=== PATIENT | female | born 1955 | race Caucasian/White ===

== ENCOUNTER 2019-11-22 08:40 | Emergency (ER) | payer MEDICAID, MEDICARE ==
[~2019-11-22] VITALS: Ht 162.6 cm; Wt 54.5 kg
[~2019-11-22 08:40] MED LIST: FLUT16SP2 NS; GABA600T13 PO; RIVA20TA PO
[2019-11-22 09:08] LABS: BASOPHILS % (AUTO) 0.3 % (0-1); EOSINOPHILS % (AUTO) 0 % (0-6); HEMATOCRIT 45.3 % (35.0-45.0); HEMOGLOBIN 15.6 g/dl (12.0-16.0); LYMPHOCYTES # (AUTO) 0.6 X10'3 (1.1-4.8); LYMPHOCYTES % (AUTO) 8.4 % (21-51); MEAN CORPUSCULAR HEMOGLOBIN 30.1 PG (27.0-31.0); MEAN CORPUSCULAR HGB CONC 34.4 g/dL (33.0-36.5); MEAN CORPUSCULAR VOLUME 87.5 FL (78-98); MEAN PLATELET VOLUME 8.5 FL (7.4-10.4); MONOCYTES % (AUTO) 13.1 % (2-12); NEUTROPHILS # (AUTO) 5.7 X10'3 (1.8-7.7); NEUTROPHILS % (AUTO) 78.2 % (42-75); PLATELET COUNT 206 X10'3 (140-440); RED BLOOD COUNT 5.18 X10'6 (4.20-5.60); RED CELL DISTRIBUTION WIDTH 13.8 % (11.5-14.5); WHITE BLOOD COUNT 7.3 X10'3 (4.5-11.0)
[2019-11-22 09:25] LABS: ALANINE AMINOTRANSFERASE 19 U/L (12-78); ALBUMIN 3.1 G/DL (3.4-5.0); ALBUMIN/GLOBULIN RATIO 0.8 (1.1-1.5); ALKALINE PHOSPHATASE 67 IU/L (46-116); ANION GAP 11 (8-16); ASPARTATE AMINO TRANSFERASE 20 U/L (10-37); BILIRUBIN,TOTAL 0.4 MG/DL (0.1-1.0); BLOOD UREA NITROGEN 18 MG/DL (7-18); BUN/CREATININE RATIO 15.4 (6.6-38.0); CALCIUM 7.3 MG/DL (8.5-10.1); CHLORIDE 102 MMOL/L (99-107); CREATININE 1.17 MG/DL (0.40-0.90); GLUCOSE 118 MG/DL (70-104); LIPASE 100 U/L (73-393); SODIUM 137 MMOL/L (135-145); TOTAL CARBON DIOXIDE 23.8 MMOL/L (24-32); eGFR 46 ML/MIN
[2019-11-22] MEDS ORDERED: pantoprazole 40 MG vial IV ONE (09:25)
[2019-11-22] MEDS ORDERED: ondansetron/PF 4mg/2ml inj IV ONE ×2 (09:25→10:45)
[2019-11-22] MEDS ORDERED: normal saline 1000ML IV soln IVB ONE (09:25)
[2019-11-22] MEDS ORDERED: loperamide 2mg capsule PO ONE (09:25)
[2019-11-22 09:50] LABS: URINE HCG NEGATIVE (NEG)
[2019-11-22] MEDS: morphine 2 MG/ML inj. syringe IV PRN ×2 (10:24→12:04)
[2019-11-22] MEDS: potassium Cl 10 mEq/100mL bag IV SCH ×2 (10:24→11:56)
[2019-11-22 11:52] LABS: CLARITY,URINE SLIGHTLY CLOUDY (Clear); COLOR,URINE YELLOW (Yellow); GLUCOSE, URINE NEGATIVE (Neg); KETONES,URINE NEGATIVE (Neg); LEUKOCYTE ESTERASE ,URINE NEGATIVE (Neg); NITRITES, URINE NEGATIVE (Neg); OCCULT BLOOD,URINE MODERATE (Neg); PROTEIN,URINE NEGATIVE (Neg); UA COLLECTION TYPE CLN CATCH MIDSTREAM; UROBILINOGEN,URINE 0.2 E.U/dL (0.2-1.0)
[2019-11-22] MEDS ORDERED: potassium Cl 10 mEq/100mL bag IV SCH (11:55)
[2019-11-22 11:58] LABS: HYALINE CASTS 0-3 /LPF (NEGATIVE); MUCUS STRANDS FEW /LPF (Neg); SQUAMOUS EPITHELIAL CELL,UR FEW /LPF (FEW)
[2019-11-22 11:59] LABS: BACTERIA,URINE 1+ /HPF (Neg); WBC,URINE 0-4 /HPF (0-4)
[2019-11-22] MEDS ORDERED: ONDA8TAB13 PO (12:57)
--- NOTE | 2019-11-22 13:12 | NUR ---
relieving RN for break, pt is resting quietly on bed, cannot mariel potassium IV "regan", Dr Martini aware and gave verbal order to run NS with potassium IV, pt is tolerating well. Pt also had apple juice, mariel well, no n/v, pt has ride home with boyfriend
[2019-11-22 14:31] VITALS: BP 97/58
== END 2019-11-22 14:36 | disposition home or self-care (01) ==
LOC: ER 08:41
DX: K52.9 Noninfective gastroenteritis and colitis, unspecified (principal); R11.10 Vomiting, unspecified; J45.909 Unspecified asthma, uncomplicated; G89.29 Other chronic pain; Z88.2 Allergy status to sulfonamides; Z88.8 Allergy status to other drugs, medicaments and biological substances; Z88.6 Allergy status to analgesic agent; Z79.899 Other long term (current) drug therapy; Z86.718 Personal history of other venous thrombosis and embolism; Z98.890 Other specified postprocedural states
CPT/HCPCS: 36415; 80053; 81001; 81025; 83690; 85025; 96361; 96374; 96375; 96376; 99283; C9113; J2270; J2405; J3480; J7030

== ENCOUNTER 2019-11-24 17:30 | Emergency (ER) | payer MEDICARE ==
[~2019-11-24] VITALS: Ht 162.6 cm; Wt 50.9 kg
[~2019-11-24 17:30] MED LIST changes: +ONDA8TAB13 PO
[2019-11-24] MEDS ORDERED: normal saline 1000ML IV soln IVB ONE (18:05)
[2019-11-24] MEDS ORDERED: ondansetron/PF 4mg/2ml inj IV ONE (18:05)
[2019-11-24] MEDS ORDERED: loperamide 2mg capsule PO ONE (18:05)
[2019-11-24 19:07] LABS: BASOPHILS % (AUTO) 0.3 % (0-1); EOSINOPHILS % (AUTO) 0.3 % (0-6); HEMATOCRIT 45.1 % (35.0-45.0); HEMOGLOBIN 15.8 g/dl (12.0-16.0); LYMPHOCYTES # (AUTO) 0.9 X10'3 (1.1-4.8); LYMPHOCYTES % (AUTO) 11.6 % (21-51); MEAN CORPUSCULAR HEMOGLOBIN 29.9 PG (27.0-31.0); MEAN CORPUSCULAR VOLUME 85.4 FL (78-98); MEAN PLATELET VOLUME 8.5 FL (7.4-10.4); MONOCYTES # (AUTO) 1.7 X10'3 (0-0.9); MONOCYTES % (AUTO) 22.5 % (2-12); NEUTROPHILS % (AUTO) 65.3 % (42-75); PLATELET COUNT 216 X10'3 (140-440); RED BLOOD COUNT 5.28 X10'6 (4.20-5.60); RED CELL DISTRIBUTION WIDTH 13.7 % (11.5-14.5); WHITE BLOOD COUNT 7.7 X10'3 (4.5-11.0)
[2019-11-24 19:23] LABS: ALANINE AMINOTRANSFERASE 20 U/L (12-78); ALBUMIN 2.9 G/DL (3.4-5.0); ALBUMIN/GLOBULIN RATIO 0.8 (1.1-1.5); ALKALINE PHOSPHATASE 73 IU/L (46-116); ANION GAP 12 (8-16); ASPARTATE AMINO TRANSFERASE 19 U/L (10-37); BILIRUBIN,TOTAL 0.4 MG/DL (0.1-1.0); BLOOD UREA NITROGEN 11 MG/DL (7-18); BUN/CREATININE RATIO 10.1 (6.6-38.0); CALCIUM 7.5 MG/DL (8.5-10.1); CHLORIDE 101 MMOL/L (99-107); CREATININE 1.09 MG/DL (0.40-0.90); GLUCOSE 113 MG/DL (70-104); LIPASE 225 U/L (73-393); SODIUM 137 MMOL/L (135-145); TOTAL CARBON DIOXIDE 24.4 MMOL/L (24-32); TOTAL PROTEIN 6.7 G/DL (6.4-8.2); eGFR 50 ML/MIN
[2019-11-24 19:26] LABS: POTASSIUM 2.9 MMOL/L (3.5-5.1)
[2019-11-24] MEDS ORDERED: GABA600T13 PO (19:28)
[2019-11-24 19:43] LABS: CLARITY,URINE SLIGHTLY CLOUDY (Clear); COLOR,URINE AMBER (Yellow); GLUCOSE, URINE NEGATIVE (Neg); KETONES,URINE NEGATIVE (Neg); LEUKOCYTE ESTERASE ,URINE NEGATIVE (Neg); NITRITES, URINE NEGATIVE (Neg); OCCULT BLOOD,URINE MODERATE (Neg); PROTEIN,URINE 30 mg/dl (Neg); UROBILINOGEN,URINE 0.2 E.U/dL (0.2-1.0)
[2019-11-24] MEDS ORDERED: potassium Cl 20 mEq SR tablet PO STA (19:43)
[2019-11-24 19:44] LABS: UA COLLECTION TYPE CLN CATCH MIDSTREAM
[2019-11-24] MEDS ORDERED: potassium Cl 10 mEq/100mL bag IV ONE (19:45)
[2019-11-24 19:52] LABS: BACTERIA,URINE FEW /HPF (Neg); MUCUS STRANDS MANY /LPF (Neg); SQUAMOUS EPITHELIAL CELL,UR MANY /LPF (FEW); WBC,URINE 0-4 /HPF (0-4)
[2019-11-24] MEDS ORDERED: metoclopramide 5 mg/ml inj IV ONE (20:00)
[2019-11-24] MEDS ORDERED: ketorolac trometh. 30mg/ml inj. IV ONE (20:00)
[2019-11-24] MEDS ORDERED: morphine 4 MG/ML inj SYRINge IV ONE (20:05)
[2019-11-24 20:14] LABS: TOTAL CELLS COUNTED 100
[2019-11-24 20:20] LABS: LARGE PLATELETS FEW; PLATELET ESTIMATE NORMAL
[2019-11-24] MEDS ORDERED: PHE25R PR (21:33)
[2019-11-24] MEDS ORDERED: HYDR-3965 PO (21:33)
[2019-11-24] MEDS ORDERED: ONDA8TAB6 PO (21:33)
[2019-11-24] MEDS ORDERED: LOPE2TAB25 PO (21:33)
[2019-11-24 21:38] VITALS: BP 102/65
== END 2019-11-24 21:45 | disposition home or self-care (01) ==
LOC: ER 17:33
DX: E87.6 Hypokalemia (principal); K56.7 Ileus, unspecified; K52.9 Noninfective gastroenteritis and colitis, unspecified; J45.909 Unspecified asthma, uncomplicated; G89.29 Other chronic pain; Z86.718 Personal history of other venous thrombosis and embolism; Z98.890 Other specified postprocedural states; Z88.2 Allergy status to sulfonamides; Z88.8 Allergy status to other drugs, medicaments and biological substances; Z79.899 Other long term (current) drug therapy
CPT/HCPCS: 36415; 74176; 80053; 81001; 83605; 83690; 84145; 85025; 87040; 96365; 96375; 99284; J1885; J2270; J2405; J2765; J3480; J7030

== ENCOUNTER 2020-03-30 11:04 | Emergency (ER) | payer MEDICARE ==
[~2020-03-30] VITALS: Ht 162.6 cm; Wt 54.0 kg
[~2020-03-30 11:04] MED LIST changes: -FLUT16SP2 NS; +LOPE2TAB25 PO; -ONDA8TAB13 PO; +ONDA8TAB6 PO; +PHE25R PR; -RIVA20TA PO
[2020-03-30] MEDS ORDERED: DOXY100C43 PO (13:17)
[2020-03-30] MEDS ORDERED: HYDR-4353 PO (13:17)
[2020-03-30 13:40] VITALS: BP 114/73
== END 2020-03-30 13:43 | disposition home or self-care (01) ==
LOC: ER 11:04
DX: L02.214 Cutaneous abscess of groin (principal); R50.9 Fever, unspecified; J45.909 Unspecified asthma, uncomplicated; G89.29 Other chronic pain; Z98.890 Other specified postprocedural states; Z88.2 Allergy status to sulfonamides; Z88.8 Allergy status to other drugs, medicaments and biological substances; Z79.899 Other long term (current) drug therapy; Z86.718 Personal history of other venous thrombosis and embolism
CPT/HCPCS: 99284

== ENCOUNTER 2020-05-12 12:36 | Emergency (ER) | payer MEDICARE ==
[~2020-05-12] VITALS: Ht 162.6 cm; Wt 54.0 kg
[2020-05-12 12:40] VITALS: BP 115/73
[2020-05-12] MEDS ORDERED: bacitracin 15gm ointment TP ONE (13:20)
[2020-05-12] MEDS ORDERED: TETanus/Pertussis (Acell)/Diphther VAC/PF (Tdap-Adult) 0.5ml syringe IMVAC ONE (13:20)
[2020-05-12] MEDS ORDERED: LIDOcaine 1% W/epiNEPHrine 1:200,000 10ml vial IJ ONE (13:20)
== END 2020-05-12 15:00 | disposition home or self-care (01) ==
LOC: ER 12:37
DX: S61.011A Laceration without foreign body of right thumb without damage to nail, initial encounter (principal); J45.909 Unspecified asthma, uncomplicated; G89.29 Other chronic pain; Z86.718 Personal history of other venous thrombosis and embolism; Z98.890 Other specified postprocedural states; Z88.2 Allergy status to sulfonamides; Z79.899 Other long term (current) drug therapy; W26.0XXA Contact with knife, initial encounter; Y93.89 Activity, other specified; Y92.89 Other specified places as the place of occurrence of the external cause; Y99.8 Other external cause status
CPT/HCPCS: 12001; 90471; 90715; 99283

== ENCOUNTER 2020-05-23 08:30 | Emergency (ER) | payer MEDICARE ==
[~2020-05-23] VITALS: Ht 165.1 cm; Wt 54.0 kg
[2020-05-23 08:32] VITALS: BP 137/80
== END 2020-05-23 09:17 | disposition home or self-care (01) ==
LOC: ER 08:30
DX: S61.011D Laceration without foreign body of right thumb without damage to nail, subsequent encounter (principal); J45.909 Unspecified asthma, uncomplicated; G89.29 Other chronic pain; Z86.718 Personal history of other venous thrombosis and embolism; Z48.02 Encounter for removal of sutures; Z98.890 Other specified postprocedural states; Z72.89 Other problems related to lifestyle; Z88.2 Allergy status to sulfonamides; Z88.8 Allergy status to other drugs, medicaments and biological substances; Z79.899 Other long term (current) drug therapy
CPT/HCPCS: 99281

== ENCOUNTER 2021-10-07 16:13 | Emergency (ER) | payer MEDICARE, OTHER ==
[~2021-10-07] VITALS: Ht 162.6 cm; Wt 54.5 kg
[2021-10-07 16:24] VITALS: BP 141/90
--- NOTE | 2021-10-07 16:35 | NUR ---
FULLY VACCINATED FOR COVID. MODERNA X2 VACCINES.
[2021-10-07] MEDS ORDERED: ketorolac trometh inj. 60 MG/2 ML VIAL IM ONE (17:10)
[2021-10-07] MEDS ORDERED: morphine 4 MG/ML inj SYRINge IM ONE (17:10)
[2021-10-07] MEDS ORDERED: HYDROcodone/acetaminophen 10/325mg tab PO ONE (17:10)
[2021-10-07] MEDS ORDERED: HYDR-3972 PO (17:16)
== END 2021-10-07 18:04 | disposition home or self-care (01) ==
LOC: ER 16:13
DX: S22.32XA Fracture of one rib, left side, initial encounter for closed fracture (principal); S80.812A Abrasion, left lower leg, initial encounter; R07.81 Pleurodynia; J45.909 Unspecified asthma, uncomplicated; G89.29 Other chronic pain; F17.200 Nicotine dependence, unspecified, uncomplicated; Z86.718 Personal history of other venous thrombosis and embolism; Z98.890 Other specified postprocedural states; Z88.2 Allergy status to sulfonamides; Z88.8 Allergy status to other drugs, medicaments and biological substances; Z79.899 Other long term (current) drug therapy; W19.XXXA Unspecified fall, initial encounter; Y93.89 Activity, other specified; Y92.89 Other specified places as the place of occurrence of the external cause; Y99.8 Other external cause status
CPT/HCPCS: 71100; 96372; 99284; J1885; J2270

== ENCOUNTER 2022-11-20 05:58 | Emergency (ER) | payer BC, MEDICAID ==
[~2022-11-20] VITALS: Ht 162.6 cm; Wt 60.0 kg
[2022-11-20 06:20] VITALS: BP 110/64
[2022-11-20] MEDS ORDERED: morphine IR (immed. release) 30mg tablet PO STA (08:10)
[2022-11-20] MEDS ORDERED: TETanus/Pertussis (Acell)/Diphther VAC/PF (Tdap-Adult) 0.5ml syringe IMVAC ONE (08:10)
[2022-11-20] MEDS ORDERED: MORP15TA PO ×4 (08:14→10:11)
[2022-11-20] MEDS ORDERED: MORP30TA PO (10:23)
== END 2022-11-20 09:25 | disposition home or self-care (01) ==
LOC: ER 05:59
DX: S52.122A Displaced fracture of head of left radius, initial encounter for closed fracture (principal); S80.811A Abrasion, right lower leg, initial encounter; J45.909 Unspecified asthma, uncomplicated; G89.29 Other chronic pain; F17.200 Nicotine dependence, unspecified, uncomplicated; Z86.718 Personal history of other venous thrombosis and embolism; Z88.2 Allergy status to sulfonamides; Z88.8 Allergy status to other drugs, medicaments and biological substances; Z88.1 Allergy status to other antibiotic agents; Z79.899 Other long term (current) drug therapy; W18.39XA Other fall on same level, initial encounter; Y93.89 Activity, other specified; Y92.89 Other specified places as the place of occurrence of the external cause; Y99.8 Other external cause status
CPT/HCPCS: 73080; 73110; 90471; 90715; 99284; A4565

== ENCOUNTER 2024-08-08 01:48 | Emergency (ER) | payer BC, MEDICAID ==
[~2024-08-08] VITALS: Ht 162.6 cm; Wt 42.7 kg
[2024-08-08 02:39] LABS: BASOPHILS # (AUTO) 0.1 X10'3 (0-0.2); BASOPHILS % (AUTO) 0.9 % (0-1); EOSINOPHILS # (AUTO) 0.3 X10'3 (0-0.9); EOSINOPHILS % (AUTO) 3.3 % (0-6); HEMATOCRIT 43.5 % (35.0-45.0); HEMOGLOBIN 14.7 g/dl (12.0-16.0); LYMPHOCYTES # (AUTO) 2.5 X10'3 (1.1-4.8); LYMPHOCYTES % (AUTO) 30.3 % (21-51); MEAN CORPUSCULAR HEMOGLOBIN 32.9 PG (27.0-31.0); MEAN CORPUSCULAR HGB CONC 33.9 g/dL (33.0-36.5); MEAN CORPUSCULAR VOLUME 96.9 FL (78-98); MEAN PLATELET VOLUME 7.9 FL (7.4-10.4); MONOCYTES # (AUTO) 0.8 X10'3 (0-0.9); MONOCYTES % (AUTO) 9.9 % (2-12); NEUTROPHILS # (AUTO) 4.7 X10'3 (1.8-7.7); NEUTROPHILS % (AUTO) 55.6 % (42-75); PLATELET COUNT 266 X10'3 (140-440); RED BLOOD COUNT 4.48 X10'6 (4.20-5.60); RED CELL DISTRIBUTION WIDTH 15.1 % (11.5-14.5); WHITE BLOOD COUNT 8.4 X10'3 (4.5-11.0)
[2024-08-08 02:45] LABS: ALANINE AMINOTRANSFERASE 14 U/L (12-78); ALBUMIN 3.2 G/DL (3.4-5.0); ALBUMIN/GLOBULIN RATIO 0.9 (1.1-1.5); ALKALINE PHOSPHATASE 117 IU/L (46-116); ANION GAP 7 (8-16); ASPARTATE AMINO TRANSFERASE 17 U/L (10-37); BILIRUBIN,TOTAL 0.4 MG/DL (0.1-1.0); BLOOD UREA NITROGEN 10 MG/DL (7-18); BUN/CREATININE RATIO 10.1 (10.0-20.0); CALCIUM 8.5 MG/DL (8.5-10.1); CHLORIDE 104 MMOL/L (99-107); CREATININE 0.99 MG/DL (0.40-0.90); GLUCOSE 102 MG/DL (70-104); LIPASE 48 U/L (16-77); POTASSIUM 3.9 MMOL/L (3.5-5.1); SODIUM 137 MMOL/L (135-145); TOTAL CARBON DIOXIDE 25.9 MMOL/L (24-32); TOTAL PROTEIN 6.8 G/DL (6.4-8.2); eCRCL 36 ML/MIN; eGFR 56 ML/MIN
[2024-08-08] MEDS: ondansetron/PF 4mg/2ml inj IV ONE (03:18)
[2024-08-08] MEDS: normal saline 1000ml 1,000 ML IV ONE (03:18)
[2024-08-08] MEDS: ketorolac trometh 15mg/ml vial 15 MG/ML ML IV ONE (03:19)
[2024-08-08] MEDS ORDERED: ONDA-245 PO (04:18)
[2024-08-08 04:41] VITALS: BP 98/62; PULSE 62; RESP 16; O2SAT 97
== END 2024-08-08 04:43 | disposition home or self-care (01) ==
LOC: ER 01:48
DX: K29.00 Acute gastritis without bleeding (principal); J45.909 Unspecified asthma, uncomplicated; G89.29 Other chronic pain; M81.0 Age-related osteoporosis without current pathological fracture; I25.10 Atherosclerotic heart disease of native coronary artery without angina pectoris; Z88.2 Allergy status to sulfonamides; Z88.8 Allergy status to other drugs, medicaments and biological substances; Z79.899 Other long term (current) drug therapy; Z98.890 Other specified postprocedural states; Z86.718 Personal history of other venous thrombosis and embolism
CPT/HCPCS: 36415; 74176; 80053; 83690; 84484; 85025; 96361; 96374; 96375; 99285; J1885; J2405; J7030